=== PATIENT | female | born 1975 | race Caucasian/White ===

== ENCOUNTER 2017-03-11 20:20 | Inpatient (IN) | payer BC ==
--- NOTE | 2017-03-11 21:45 | RAD ---
RADIOGRAPH CHEST 2 VIEWS: 03/11/17 HISTORY: 41-year-old female with cough. COMPARISON: None. FINDINGS: There is no air space density, pulmonary edema, pleural effusion, pneumothorax, or cardiomegaly. Ther e is a left subclavian implantable vascular access port with distal tip overlying the lower portion o f the SVC. There is an approximately 3.5 cm gap between the proximal portion of the catheter and the distal portion of the catheter, with the gap located inferior to the left clavicular head. IMPRESSION: 1. No acute cardiopulmonary findings. 2. Broken, discontinuous left subclavian implantable vascular access port. [email or web address] [] POS: CAREY
[2017-03-11 21:55] LABS: #Eosinphils 0.2 thou/uL (0.0-0.7); #Lymphocytes 2.3 thou/uL (1.20-3.40); #Monocytes 0.5 thou/uL (0.11-0.59); #Neutrophils 9.7 thou/uL (1.40-6.50); %Basophils 0.4 % (0.0-1.0); %Eosinophils 1.3 % (0.0-10.0); %Lymphocytes 17.9 % (21.0-51.0); %Monocytes 4.2 % (0.0-10.0); Hematocrit 48.7 % (36.0-47.0); Mean Platelet Volume 7.2 fL (7.4-10.4); Red Blood Cell (RBC) Count 5.25 mill/uL (4.20-5.40); White Blood Cell (WBC) Count 12.7 thou/uL (4.8-10.8)
[2017-03-11 22:31] LABS: ALT (SGPT) 23 U/L (8-55); AST (SGOT) 14 U/L (5-34); Alkaline Phosphatase 118 U/L (40-150); Anion Gap 12 mmol/L (10-20); BUN (Urea Nitrogen) 17 mg/dL (7.0-18.7); Bilirubin, Total 0.4 mg/dL (0.2-1.2); Calc. Creatinine Clearance 0 mL/min (70-130); Calcium 9.3 mg/dL (7.8-10.44); Carbon Dioxide 26 mmol/L (22-29); Chloride 106 mmol/L (98-107); Estimated GFR-MDRD 82; Globulin 3.6 g/dL (2.4-3.5); Protein, Total 7.3 g/dL (6.0-8.3)
[2017-03-11] MEDS ORDERED: Ketorolac Tromethamine 30 MG/ML VIAL ONE (22:34)
[2017-03-11] MEDS ORDERED: Ondansetron HCl/PF 4 MG/2 ML Vial ONE (22:34)
[2017-03-12 00:11] LABS: Lactic Acid - Sepsis 0.8 mmol/L (0.5-2.2)
[2017-03-12] MEDS ORDERED: Acetaminophen 325 MG TAB PO PRN (01:35)
[2017-03-12] MEDS ORDERED: Ondansetron ODT 4 MG TAB PO PRN (01:35)
[2017-03-12] MEDS ORDERED: Guaifenesin DM 100-10/5 ML UDCUP PO PRN (01:35)
[2017-03-12] MEDS ORDERED: Benzonatate 100 MG CAP PO PRN (01:35)
[2017-03-12] MEDS ORDERED: Pseudoephedrine HCl 30 MG TAB PO PRN (01:35)
[2017-03-12] MEDS: Sodium Chloride 0.9% 1,000 ML IV SCH ×2 (02:09→10:22)
--- NOTE | 2017-03-12 02:37 | HP-2 ---
CODE STATUS: Full. PRIMARY CARE PHYSICIAN: Dr. Acuña, [place]. ATTENDING: Kaila Barrera M.D. RESIDENT: Tiera Lechuga DO HISTORIAN: The patient. SPECIALIST: Kareem Franco, information security consultant. CHIEF COMPLAINT: Sore throat, nasal congestion. HISTORY OF PRESENT ILLNESS: The patient is a 41-year-old female with past medical history of IgG4 immunodeficiency, status post several IgG infusions this week, presented with a T-max of 103.0, congestion, sinus pressure x2 weeks. She was treated with IV steroids and transitioned to p.o. steroids yesterday for flu-like symptoms diagnosed by her information security consultant. Illness began with body aches, fever, chills, sore throat, and transitioned to now a cough, sinus pressure, congestion, nausea, vomiting. She saw her PCP today. They did a chest x-ray which was negative, lab work which was negative, and PCP called information security consultant, Dr. Franco who recommended ER and inpatient care. She reports there was a transitional period of 2-3 days during this illness where she did feel better. During this time, she does have 2 new foster kids of which have had upper respiratory symptoms and viral illness. She is also reporting migraine LAMBERT symptoms of photophobia and R anterior pulsating LAMBERT. In the ER, she was given Toradol 30 mg, Zofran 4 mg IV, and Levaquin 750 mg. PAST MEDICAL HISTORY: 1. Lupus. 2. IgG4 immunodeficiency. 3. RA. 4. Fibromyalgia. 5. Gout. PAST SURGICAL HISTORY: 1. MediPort x3. 2. Hysterectomy. 3. Adhesiolysis. 4. Cholecystectomy. 5. Appendectomy. ALLERGIES: 1. DARVOCET. 2. DEMEROL. 3. PENICILLIN. 4. PERCOCET. 5. PERCODAN. 6. SULFA. 7. VICODIN. MEDICATIONS: 1. Amitriptyline 10 mg daily. 2. Prednisone 10 mg b.i.d. 3. Ativan 1 mg p.r.n. 4. Gabapentin 300 mg b.i.d. 5. Morphine 15 mg p.r.n. pain. 6. Hizentra subcutaneously weekly injections. FAMILY HISTORY: Noncontributory. SOCIAL HISTORY: The patient is a former smoker, has not smoked in 3 weeks, smoked about 1/2 pack per day for 20+ years. No alcohol or drug use. REVIEW OF SYSTEMS: GENERAL: Reports fever and chills, increased fatigue. EYES: Denies vision changes, but reports photophobia. ENT: Reports nasal congestion, headache which feels like her migraine. RESPIRATORY: Reports cough, congestion, shortness of breath. CARDIOVASCULAR: Denies chest pain or palpitations. GASTROINTESTINAL: Reports nausea, vomiting. No diarrhea, constipation, or abdominal pain. GENITOURINARY: Denies dysuria. SKIN: Denies rashes. MUSCULOSKELETAL: Reports joint pain, stable. NEUROLOGIC: Denies weakness, numbness, or syncope. PSYCHIATRIC: Denies anxiety or depression. PHYSICAL EXAMINATION: VITAL SIGNS: Blood pressure 138/69, pulse 86, respiratory rate 20, T-max 97.7, pulse ox 98% on room air. Current weight 108.86 kilograms. GENERAL: The patient is alert and oriented x4, in no acute distress. Well- developed, appropriately interactive. EYES: PERRLA, EOMI. ENT: Erythematous posterior oropharynx. Nasal mucosa is within normal limits. Sinus pressure or tenderness to palpation in sinuses. NECK: Supple with anterior cervical lymphadenopathy. CARDIOVASCULAR: Regular rate and rhythm. No murmurs or gallops. RESPIRATORY: Normal effort, mild wheezing. SKIN: Warm and dry. ABDOMEN: Soft, nontender. EXTREMITIES: No clubbing, cyanosis, or edema. MUSCULOSKELETAL: Structure within normal limits. Tone within normal limits. NEUROLOGIC: No focal deficits. GCS 15. PSYCHIATRIC: Appropriate. LABORATORY DATA: CBC: White blood cell count 12.7, hemoglobin 16.0, hematocrit 48.7, platelets 238, 76.2% neutrophils. Chemistries: Sodium 140, potassium 3.7, chloride 106, CO2 26, BUN 17, creatinine 0.7, glucose 125, GFR 82 , calcium 9.3, total protein 7.3, albumin 3.7, AST 14, ALT 23, alkaline phosphate 118, total bilirubin 0.4. Chest x-ray with no acute cardiopulmonary process. Does show broken MediPort. CT head pending. ASSESSMENT AND PLAN: 1. Viral upper respiratory infection with failed outpatient treatment in an immunocompromised patient. The patient has received IV steroids and IgG infusions without improvement. We will continue Levaquin started in ED. We will give IV fluids, p.r.n. nebulized treatments. Blood culture and urine culture were collected and are pending. Tylenol for fever control, guaifenesin for congestion and cough, Tessalon Perles for cough, and increased prednisone to 40 mg p.o. daily. 2. Acute sinusitis, likely the official CT pending. The patient does have symptoms of acute sinusitis. We will continue with IV antibiotics, possibly the cause of her fevers, CT head is pending, but we will rule out abscess versus fungal infection. 3. IgG4 deficiency, possibly consider ID consult in the morning and continue home meds and weekly injections. 4. Lupus. We will continue with home medications. This is stable. 5. Rheumatoid arthritis. We will continue with home medications. 6. Gout. Continue home medications. 8. Broken MediPort. Outpatient followup. 9. Migraine. We will try Fioricet and Tylenol. DISPOSITION AND LENGTH OF HOSPITAL STAY: 1-2 days. Symptomatic medications will be provided. History and physical exam, as well as management, was discussed with Dr. Kaila Barrera. IVANIA
[2017-03-12] MEDS: Fioricet 325/50/40 mg Tablet PO PRN ×3 (02:39→14:29)
[2017-03-12 04:34] LABS: #Eosinphils 0.2 thou/uL (0.0-0.7); #Lymphocytes 2.7 thou/uL (1.20-3.40); #Monocytes 0.6 thou/uL (0.11-0.59); %Basophils 0.5 % (0.0-1.0); %Eosinophils 1.9 % (0.0-10.0); %Lymphocytes 28.3 % (21.0-51.0); %Monocytes 6.3 % (0.0-10.0); Hematocrit 43.6 % (36.0-47.0); Mean Platelet Volume 7.3 fL (7.4-10.4); Red Blood Cell (RBC) Count 4.64 mill/uL (4.20-5.40); White Blood Cell (WBC) Count 9.5 thou/uL (4.8-10.8)
[2017-03-12] MEDS ORDERED: Lorazepam 1 MG TAB PO PRN (05:12)
[2017-03-12 05:46] VITALS: BMI 32.5
--- NOTE | 2017-03-12 07:45 | CT ---
FINAL REPORT: CT HEAD WITHOUT CONTRAST: Multiple axial tomograms were obtained through the head without IV enhancement. No acute intracranial process. There is a partially calcified mass involving the anterior falx measuring up to 1.3 cm as noted on e preliminary report. Findings most likely represent partially calcified meningioma as noted on the preliminary report. Recommend elective neurosurgical consultation and elective followup. CODE T POS: [facility]
[2017-03-12] MEDS ORDERED: predniSONE 20 MG TAB PO SCH (08:00)
[2017-03-12] MEDS ORDERED: Gabapentin 300 MG CAP PO SCH (09:00)
[2017-03-12] MEDS ORDERED: Ketorolac Tromethamine 30 MG/ML VIAL IVP SCH (09:45)
--- NOTE | 2017-03-12 10:08 | PDOC.EVN ---
Event Note - Event Note Event Note: Patient seen and examined by me. History, physical, assessment and plan reviewed with Dr. Lechuga and agree with resident's documentation. Briefly, this is a 41 year old female with history of IgG4 deficiency, lupus, migraines, fibromyalgia presented with 3 week history of sinus pressure/ congestion, cough, intermittent fevers. Seen by her trim machine adjuster and started on steroids for flu-like/viral illness. She initially felt better but then worsened and seen by PCP who sent her to ER after discussion with her trim machine adjuster. CT brain negative WBC=12.7. CXR negative. This morning feeling better except LAMBERT. States that neb treatments helped the most. A/P: 1) Sinusitis possibly secondary bacterial component given length of symptoms (3 weeks). Continue levaquin and steroids. Plan to d/c home later today with close follow-up. 2) Migraine- continue toradol.
[2017-03-12 10:54] VITALS: BP 152/91; TEMP 98
--- NOTE | 2017-03-12 16:28 | CON ---
DATE OF CONSULTATION: 03/12/2017 REASON FOR CONSULTATION: Respiratory symptoms, history of immunoglobulin deficiency. HISTORY OF PRESENT ILLNESS: A 41-year-old, first admission to this hospital, who has a history of some form of systemic lupus erythematosus as well as a recently diagnosed immunoglobulin deficiency. According to the patient, she has a deficiency of IgG1, IgG2, and IgG4. The patient was started initially on gamma globulin infusions and due to insurance issues, the approval was removed and she was recently switched to a different product which is given subcutaneously. Apparently, she was off replacement for a few weeks and now has developed recrudescence of respiratory symptoms with a sensation of sinus pressure, a cough, congestion which has failed outpatient management. She has been admitted for treatment. Some headaches. She has noticed worsening migraine headaches for the past few months. No visual symptoms, nasal obstipation, some sore throat. No neck pain, no back pain, cough with white sputum production. No abdominal pain or diarrhea. No genitourinary symptoms. She does have some tenderness in the abdominal wall from the injections for the immunoglobulin replacement. No skin disorder. No neurological symptoms. PAST MEDICAL HISTORY: Some form of systemic lupus diagnosed in the past and rheumatoid arthritis unclear the basis of diagnosis, history of some form of immunoglobulin deficiency. She states that she has IgG1, 2, and 4 deficiency, fibromyalgia, gout. PAST SURGICAL HISTORY: MediPort placement x3, hysterectomy, adhesiolysis, cholecystectomy, appendectomy. ALLERGIES: DARVOCET, DEMEROL, PENICILLIN, SULFA DRUGS, VICODIN, PERCODAN. MEDICATIONS: Had been on prednisone 10 mg twice daily, amitriptyline, Ativan, gabapentin, morphine, Hizentra. FAMILY HISTORY: Noncontributory. SOCIAL HISTORY: Former smoker. PHYSICAL EXAMINATION: VITAL SIGNS: T-max 98, blood pressure 150/90, pulse 85, respiratory rate 16, O2 sat 92-94%. GENERAL: There is no distress, nasal obstipation. SKIN: Normal. There is no lymphadenopathy. She has a port in the left subclavian region, which is moderately tender. HEENT: Ocular movements are conjugate. Oral cavity normal. Teeth in good shape. NECK: Supple, no jugular venous distention. LUNGS: Symmetric breath sounds with expiratory wheezing, right and left hemithorax. HEART: S1, S2, regular rate. No S3 or S4. ABDOMEN: Soft with tenderness at the sites of the immunoglobulin and product injection in the subcutaneous tissue. No bladder distention. EXTREMITIES: No joint inflammatory activity. Pulses 1+ dorsalis pedis. No edema. NEUROLOGIC: Plantar responses are flexor. No clonus. Cognitive function appears to be intact. LABORATORY DATA: White cell count 12.7 and 9.5, hemoglobin 16, platelets 238, 76% neutrophils and now 62%. Chemistry: Glucose 125, albumin 3.7, globulin 3.6. The patient had a brain CT scan which showed partially calcified mass in the anterior falx measuring 1.3 cm and the paranasal sinuses are actually quite clear. Chest x-ray with the discontinued broken left subclavian implantable vascular access port. The broken segment appears to be right at the subcutaneous portion, but the vascular segment is inside the subclavian vein close to the midline. ASSESSMENT: 1. History of some form of lupus and rheumatoid arthritis, unclear the basis of diagnosis. 2. History of some form of immunoglobulin deficiency and according to the patient, she has a deficiency of IgG1, 2, and 4 with previous gamma globulin infusions, now on subcutaneous immunoglobulin infusions due to insurance issues. 3. Interruption of the infusions for a period of few weeks, now recrudescence of respiratory symptoms. 3. Broken port with a segment of vascular access catheter inside the subclavian vein. DISCUSSION: The differential diagnosis includes viral respiratory infection versus bacterial bronchitis. There is no evidence of sinusitis on the CT scan that was done. Bacteremia associated with colonization of the port is another possibility since the port is tender to palpation. We will monitor blood cultures if those were submitted. It looks like 2 sets were submitted. We will submit the respiratory virus PCR panel and she will need a consultation with Surgery to inquire regarding removal of the device from her chest and from the intravascular structure. She will probably need a cardiovascular surgeon to evaluate this problem. I would also reevaluate this history of lupus with autoantibody testing and submit tests for opportunistic infections including cytomegalovirus, Cryptococcus neoformans, and histoplasma infection. Check hepatitis C and HIV serology. The issue of immunoglobulin deficiency seems to have settled by dr. Kareem Mtz with quantitative analysis as well as vaccination response and she will hopefully be switched back to gammagard infusion. MTDD
--- NOTE | 2017-03-12 20:13 | DIS-2 ---
DATE OF ADMISSION: 03/11/2017 DATE OF DISCHARGE: 03/12/2017 RESIDENTS: Que Ely M.D. ADMITTING ATTENDING: Kaila Barrera M.D. DISCHARGE ATTENDING: Kaila Barrera M.D. CONSULTS: With Infectious Disease, Osmany Rivera M.D. PROCEDURES: She underwent a brain CT on 03/11/2017 that showed no acute intracranial process. A partially calcified mass involving the anterior falx measuring up to 1.3 cm as noted on a preliminary report. Findings most likely represent partially calcified meningioma. Recommend elective neurosurgical consultation and elective followup. She also underwent a chest x-ray on 03/11/2017 that showed no acute cardiopulmonary findings, broken discontinuous left subclavian implantable vascular access port. DIAGNOSES: 1. Viral upper respiratory infection in an immunocompromised patient. 2. Acute sinusitis. 3. IgG4 deficiency. 4. Lupus. 5. Rheumatoid arthritis. 6. Gout. 7. Migraine. DISCHARGE MEDICATIONS: 1. Sumatriptan 6 mg. 2. Morphine 15 mg. 3. Lorazepam 1 mg b.i.d. 4. Amitriptyline 10 mg b.i.d. 5. Prednisone 10 mg b.i.d. 6. Hizentra 10 grams subcutaneous every 7 days. 7. Gabapentin 300 mg b.i.d. 8. Toradol 30 mg. 9. Tessalon 100 mg. 10. Levaquin 750 mg. 11. Albuterol sulfate 2.5 mg nebulizers. DISCONTINUED MEDICATIONS: None. HISTORY OF PRESENT ILLNESS AND HOSPITAL COURSE: This is a 41-year-old female with past medical history of IgG4 deficiency, status post several IgG infusions this week, presented with T-max 103 degrees, congestive sinus pressure x2 weeks. She was treated with IV steroids and transitioned to p.o. steroids yesterday for flu-like symptoms, diagnosed by her boarder machine. Illness began with body aches, fever, chills, sore throat, cough, sinus pressure, congestion, nausea, and vomiting. She saw her PCP today, they did a chest x-ray which was negative; lab work, which was negative and her PCP called boarder machine, Dr. Mtz, who recommended ER and inpatient care. She reports there was a transitional period of 2-3 days during this illness where she did feel better. During this time, she does have two new which she had an upper respiratory symptoms and viral illness. She is also reporting migraine headache , symptoms of photophobia and right anterior pulsating headache. In the ER, she was given Toradol 30 mg, Zofran 4 mg, IV and Levaquin 750 mg. During the hospitalization, her respiratory status improved with the nebulized albuterol, ipratropium combination DuoNebs. She was no longer labored breathing , she still did experience a headache, but she said that is normal for her. She does suffer from migraines that she is treated as an outpatient for. Her CT scan did not show any acute signs of bacterial sinusitis, so it was determined that this is likely a viral upper respiratory infection with some sinus pressure that will need outpatient followup. She had some notable lab values of a white blood cell count of 12.7 that down trended to 9.5 on day of discharge and a lactic acid of 0.8. During this hospitalization, she was afebrile, the entire time with her temperature ranging from 97.6 to 97.9, then she was not tachycardic and was not tachypneic and had good oxygen saturation during her hospitalization. She otherwise tolerated the hospitalization well and had no further complications. We do recommend that she have a close outpatient follow up with her boarder machine and her primary care physician to discuss her disease management for her chronic disease management in the acute phase during viral illnesses. She otherwise had no complications and was discharged on appropriate condition. DISPOSITION: Stable. DISCHARGE INSTRUCTIONS: 1. Location: She will be discharged to home to her own care. 2. Diet: Will be as tolerated with no restrictions. 3. Activity: Will be as tolerated with no restrictions. 4. Followup: Will be with her primary care provider, Dr. Acuña in 3 days as well as her boarder machine, Dr. Mtz, in the next weeks to discuss long-term therapy for her chronic illness, we wish her the best of luck and hope she has no further complications from this condition. IVANIA
[2017-03-12] MEDS ORDERED: Amitriptyline HCl 10 MG TAB PO SCH (21:00)
[2017-03-17] MEDS ORDERED: [UNRECOGNIZED DRUG - OTHER] SQ SCH (09:00)
[2017-03-17] MEDS ORDERED: IMMUNE GLOBULIN SQ SCH (09:00)
== END 2017-03-12 15:41 | disposition home or self-care (01) | DRG 153 ==
LOC: ERS 20:20 → T4-B 03-12 00:54
PROVIDERS: ADMIT Family Medicine; ATTEND Family Medicine
DX: J01.90 Acute sinusitis, unspecified (principal); D80.3 Selective deficiency of immunoglobulin G [IgG] subclasses; T82.514A Breakdown (mechanical) of infusion catheter, initial encounter; R78.81 Bacteremia; D89.9 Disorder involving the immune mechanism, unspecified; M32.9 Systemic lupus erythematosus, unspecified; M10.9 Gout, unspecified; M06.9 Rheumatoid arthritis, unspecified; D32.0 Benign neoplasm of cerebral meninges; M79.7 Fibromyalgia; G43.909 Migraine, unspecified, not intractable, without status migrainosus; Z88.0 Allergy status to penicillin; Z88.6 Allergy status to analgesic agent; Z88.5 Allergy status to narcotic agent; Z88.2 Allergy status to sulfonamides; Z87.891 Personal history of nicotine dependence; Y84.8 Other medical procedures as the cause of abnormal reaction of the patient, or of later complication, without mention of misadventure at the time of the procedure; Y92.239 Unspecified place in hospital as the place of occurrence of the external cause
CPT/HCPCS: 36415; 70450; 71020; 80053; 83520; 83605; 85025; 86160; 86225; 86235; 86376; 86431; 86803; 87040; 87385; 87389; 87497; 87633; 87899; 93005; 94640; 96361; 96365; 96375; A4216; J1885; J1956; J2405; J7506; J7620

== ENCOUNTER 2017-05-17 20:35 | Emergency (ER) | payer BC ==
--- NOTE | 2017-05-17 21:57 | CT ---
CT HEAD WITHOUT CONTRAST 05/17/17 COMPARISON: 03/12/17 HISTORY: Migraine headache, history of brain tumor. TECHNIQUE: Serial axial CT imaging obtained at 5 mm intervals from vertex through skull base without contrast. FINDINGS: Imaged paranasal sinuses and mastoid air cells are well aerated. No displaced calvarial fracture, int racranial hemorrhage, midline shift, or ventricular enlargement. There is a partially calcified midline frontal mass, likely extra-axial in mature, measuring approxim ately 1.6 cm in transverse dimension, stable. A meningioma is favored. Followup nonemergent brain MRI with and without contrast is advised for full characterization. IMPRESSION: 1. No intracranial hemorrhage. 2. Findings suggesting a partially calcified extra-axial mass in midline frontal location. Menin gioma is favored. Followup MR advised. POS: CAREY
[2017-05-17] MEDS ORDERED: Ketorolac Tromethamine 30 MG/ML VIAL ONE (22:34)
[2017-05-17] MEDS ORDERED: diphenhydrAMINE 50 MG/ML VIAL ONE (22:34)
[2017-05-17] MEDS ORDERED: Metoclopramide HCl 10 MG/2 ML VIAL ONE (22:34)
[2017-05-17] MEDS ORDERED: methylPREDNISolone Sod Succ/PF 125 MG/2 ML VIAL ONE (23:58)
[2017-05-18] MEDS ORDERED: Magnesium Sulfate 2 GM/100 ML BAG ONE
== END 2017-05-18 01:56 | disposition home or self-care (01) ==
LOC: ERS 20:35
DX: G43.909 Migraine, unspecified, not intractable, without status migrainosus (principal); Z87.891 Personal history of nicotine dependence; Z79.899 Other long term (current) drug therapy; Z71.6 Tobacco abuse counseling
CPT/HCPCS: 70450; 96365; 96366; 96367; 96375; 99406; J1200; J1642; J1885; J2765; J2930; J3475

== ENCOUNTER 2017-06-05 23:34 | Observation (INO) | payer BC ==
[2017-06-06 00:07] LABS: #Basophils 0.1 thou/uL (0.0-0.2); #Eosinphils 0.4 thou/uL (0.0-0.7); #Lymphocytes 2.5 thou/uL (1.20-3.40); #Monocytes 0.4 thou/uL (0.11-0.59); #Neutrophils 3.4 thou/uL (1.40-6.50); %Basophils 1.3 % (0.0-1.0); %Eosinophils 5.8 % (0.0-10.0); %Lymphocytes 36.3 % (21.0-51.0); %Monocytes 6.3 % (0.0-10.0); %Neutrophils 50.3 % (42.0-75.0); Mean Corpuscular Hemoglobin 30.3 pg (27.0-31.0); Mean Corpuscular Volume 89.2 fl (81.0-99.0); Mean Platelet Volume 7.2 fL (7.4-10.4); Platelet Count 238 thou/uL (130-400); RBC Distribution Width 12.7 % (11.5-14.5); Red Blood Cell (RBC) Count 5.27 mill/uL (4.20-5.40); White Blood Cell (WBC) Count 6.8 thou/uL (4.8-10.8)
[2017-06-06 00:29] LABS: ALT (SGPT) 24 U/L (8-55); AST (SGOT) 20 U/L (5-34); Albumin 3.9 g/dL (3.5-5.0); Alkaline Phosphatase 123 U/L (40-150); Anion Gap 10 mmol/L (10-20); BUN (Urea Nitrogen) 16 mg/dL (7.0-18.7); Bilirubin, Total 0.3 mg/dL (0.2-1.2); Calc. Creatinine Clearance 0 mL/min (70-130); Calcium 9.9 mg/dL (7.8-10.44); Carbon Dioxide 31 mmol/L (22-29); Chloride 104 mmol/L (98-107); Estimated GFR-MDRD 75; Globulin 3.4 g/dL (2.4-3.5); Glucose 81 mg/dL (70-105); Potassium 3.4 mmol/L (3.5-5.1); Protein, Total 7.3 g/dL (6.0-8.3); Sodium 142 mmol/L (136-145)
[2017-06-06 00:33] LABS: Troponin I Less than 0.010 ng/mL (< 0.028)
[2017-06-06 01:09] LABS: INR-International Normal Ratio 0.9; PTT 28.8 SEC (22.9-36.1); Prothrombin Time 12.7 SEC (12.0-14.7)
[2017-06-06 01:10] LABS: BHCG - Serum Negative (NEGATIVE); Pregs Control Background? CLEAR/WHITE (CLR/WHITE); Pregs Control Bar Appear? YES (CONTROL BAR)
[2017-06-06] MEDS ORDERED: methylPREDNISolone Sod Succ/PF 125 MG/2 ML VIAL ONE (01:24)
[2017-06-06] MEDS ORDERED: Metoclopramide HCl 10 MG/2 ML VIAL ONE (01:24)
[2017-06-06] MEDS ORDERED: Water For Inject, Bacteriostat 30 ML ONE (01:24)
[2017-06-06] MEDS ORDERED: Labetalol HCl 100 MG/20 ML VIAL SLOW IVP PRN (02:58)
[2017-06-06] MEDS ORDERED: hydrALAZINE 20 MG/ML VIAL SLOW IVP PRN (02:58)
[2017-06-06] MEDS ORDERED: Milk Of Magnesia 30 ML UDCUP PO PRN (03:03)
[2017-06-06] MEDS ORDERED: Acetaminophen 325 MG TAB PO PRN (03:03)
[2017-06-06] MEDS ORDERED: Ondansetron HCl/PF 4 MG/2 ML Vial IVP PRN (03:03)
[2017-06-06 03:36] LABS: Bilirubin Negative (Negative); Blood, Urine Negative (Negative); Clarity CLEAR (Clear); Glucose, Urine (Dipstick) Negative (Negative); Leukocyte Negative (Negative); Nitrite Negative (Negative); Protein, Urine (Dipstick) Negative (Neg-Trace); Urobilinogen 0.2 mg/dL (0.2-1.0); pH, Urine 5.5 (5.0-9.0)
[2017-06-06 03:38] LABS: Specific Gravity, Urine 1.064 (1.002-1.036)
[2017-06-06 03:48] LABS: #Eosinphils 0.2 thou/uL (0.0-0.7); #Lymphocytes 1.5 thou/uL (1.20-3.40); #Monocytes 0.1 thou/uL (0.11-0.59); #Neutrophils 3.3 thou/uL (1.40-6.50); %Basophils 0.7 % (0.0-1.0); %Eosinophils 4.5 % (0.0-10.0); %Lymphocytes 29.4 % (21.0-51.0); %Monocytes 2.4 % (0.0-10.0); Hemoglobin 15.7 g/dL (12.0-16.0); Mean Corpuscular HGB CONC 34.5 g/dL (32.0-36.0); Mean Corpuscular Hemoglobin 30.7 pg (27.0-31.0); Mean Platelet Volume 7.2 fL (7.4-10.4); Platelet Count 218 thou/uL (130-400); RBC Distribution Width 12.5 % (11.5-14.5); Red Blood Cell (RBC) Count 5.11 mill/uL (4.20-5.40); White Blood Cell (WBC) Count 5.2 thou/uL (4.8-10.8)
[2017-06-06 04:09] LABS: ALT (SGPT) 25 U/L (8-55); AST (SGOT) 20 U/L (5-34); Albumin 3.8 g/dL (3.5-5.0); Alkaline Phosphatase 118 U/L (40-150); Anion Gap 10 mmol/L (10-20); BUN (Urea Nitrogen) 15 mg/dL (7.0-18.7); Bilirubin, Total 0.4 mg/dL (0.2-1.2); Calc. Creatinine Clearance 0 mL/min (70-130); Calcium 9.3 mg/dL (7.8-10.44); Carbon Dioxide 26 mmol/L (22-29); Cardiac Risk 7.7 (Less than 4.5); Chloride 107 mmol/L (98-107); Cholesterol 240 mg/dl (< 200 Desired); Estimated GFR-MDRD 85; Globulin 3.3 g/dL (2.4-3.5); Glucose 116 mg/dL (70-105); HDL Cholesterol 31 mg/dL (>60 Neg Risk); LDL Cholesterol, Calculated 153 mg/dL; Potassium 3.8 mmol/L (3.5-5.1); Protein, Total 7.1 g/dL (6.0-8.3); Sodium 139 mmol/L (136-145); Triglycerides 278 mg/dL (Less than 150)
--- NOTE | 2017-06-06 04:50 | HP ---
PRIMARY CARE PHYSICIAN: Dr. Tyrell Acuña. PRESENTING COMPLAINT: Right-sided weakness. HISTORY OF PRESENT ILLNESS: A 41-year-old female with a past medical history of IgG4 deficiency, lupus, rheumatoid arthritis, fibromyalgia and gout who presents to the emergency room with complaints of right-sided weakness. Patient reports around 5-6 p.m. today, she felt some numbness in her arms and legs with tingling and weakness, making it difficult for her to ambulate. She also had numbness on the right side of her face, slurred speech, and word finding difficulties. This was preceded by headaches, which she says she has had chronically, but got worse around 5-6 p.m. today. It was associated with some nausea, but no vomiting. She took some Toradol, ibuprofen, and Relpax at home, which usually works for her headaches, but had no relief today. She has a history of meningioma according to the patient and she is supposed to follow up with a physician at [facility] on 06/14/2017. Her headache is described as frontal, throbbing, does not radiate, and not associated with any vision difficulties. The patient denies fevers, chills, chest pain, shortness of breath, abdominal or urinary symptoms. There is no history of loss of consciousness or dizziness. She is not on aspirin or any blood thinner and has not had similar symptoms before. PAST MEDICAL HISTORY: As stated in the HPI. PAST SURGICAL HISTORY: MediPort x3, hysterectomy, appendectomy, cholecystectomy. SOCIAL HISTORY: Smokes half a pack of cigarettes per day, but denies using alcohol or illicit drugs. ALLERGIES: DARVOCET, DEMEROL, PENICILLIN, PERCOCET, PERCODAN, SULFA DRUGS, VICODIN. HOME MEDICATIONS: Amitriptyline 10 mg daily, prednisone 10 mg b.i.d., Ativan 1 mg p.r.n., gabapentin 300 mg b.i.d., morphine 50 mg p.r.n. for pain, Hizentra subcutaneous weekly injections, albuterol sulfate 2.5 mg nebulizer q.4 hours p.r.n., levofloxacin 750 mg daily, ketorolac 30 mg IM every 6 hours p.r.n., immunoglobulin IgG 10 grams in 15 mL every 7 days subcutaneously, lorazepam 1 mg b.i.d., prednisone 10 mg b.i.d., sumatriptan succinate 6 mg subcutaneous every one hour p.r.n. for headaches. REVIEW OF SYSTEMS: Twelve-point review of systems was performed and negative except stated in the HPI. HOME MEDICATIONS: Reviewed and charted. PHYSICAL EXAMINATION: VITAL SIGNS: Stable and within normal limits. GENERAL: Not in acute distress, sitting comfortably in bed. HEENT: Normocephalic, atraumatic. Not pale, anicteric. PERRLA. EOMI. Moist mucous membranes. CARDIOVASCULAR: S1 and S2 only. Regular rate and rhythm. No murmurs, rubs, or gallop. RESPIRATORY: Vascular breath sounds bilaterally. No wheezes, rales, or rhonchi. ABDOMEN: Soft, nontender, not distended. Bowel sounds present. No hepatosplenomegaly. MUSCULOSKELETAL: Strength 3-1/2 to 4/5 in the right upper extremity, 3/5 in right lower extremities. Full strength in left extremities. NEUROLOGIC: Alert and oriented to time, place and person. No focal deficits. Sensation intact. SKIN: Warm, dry, well-perfused. PSYCHIATRIC: Normal mood and affect. LABORATORY DATA: CBC within normal limits. INR 0.9. Chemistry essentially normal apart from mild hypokalemia of 3.4. Beta hCG negative. Initial troponin less than 0.010. IMAGING: CT head without contrast showed no focal deficits. A CT [place] angio with contrast, formal report pending. ASSESSMENT AND PLAN: 1. Right hemiparesis. Concern for possible new CVA in this patient with autoimmune disorders and prone to hypercoagulability. She has been admitted to the stroke unit. We will follow up on the CT angio, ordered an MRI of brain, MAL, PT/OT, and speech language therapy. We will also obtain a neurology consult. Stroke protocol in place. 2. IgG4 deficiency. We will resume home medications. 3. Systemic lupus erythematosus as above. 4. Headaches. We will start home medications and monitor. 5. We will also start the patient on aspirin and statin for secondary prevention. CODE STATUS: FULL CODE. In addition for rheumatoid arthritis and gout, we will continue her home medications and for her headache, we will continue sumatriptan and Tylenol. IVANIA
[2017-06-06 05:06] VITALS: BMI 34.9
--- NOTE | 2017-06-06 07:50 | CT ---
PRELIMINARY REPORT/[facility]/EMERGENCY AFTER HOURS PROCEDURE: Addendum created by Zaid Campbell MD on 06/06/2017 1:04 AM Central Time ([place] & [place]) THIS REPORT CONTAINS FINDINGS THAT MAY BE CRITICAL TO PATIENT CARE. The findings were verbally commun icated via telephone conference with Sung Downey at 1:04 AM [facility] [employer] on 06/06/2017. The findings were acknowledged and understood. Initial Report created on 06/06/2017 12:55 AM Central Time ([place] & [place]) EXAM: CT Head Without Intravenous Contrast CLINICAL HISTORY: 41 years old, female; Pain and signs and symptoms; Weakness, extremity; Headache; Patient HX: 41 yo f presents to ed C/O r side numbness. Pt states she has h/o a frontal lobe meningioma dx on 03/13/17. States that tonight at [id number] she started having a bad headache. At 20: 30 tonight, pt started hav ing r sided face numbness and r arm and r leg tingling. TECHNIQUE: Axial computed tomography images of the head/brain without intravenous contrast. COMPARISON: Head CT report dated 03/12/2017 FINDINGS: Brain: Frontal parafalcine partially calcified extra-axial mass measuring 12 x 10 mm presumably repre senting a meningioma, grossly stable by report No hemorrhage. No significant white matter disease. No edema. Ventricles: Unremarkable. No ventriculomegaly. Bones/joints: Unremarkable. No acute fracture. Soft tissues: Unremarkable. Sinuses: Unremarkable as visualized. No acute sinusitis. Mastoid air cells: Unremarkable as visualized. No mastoid effusion. IMPRESSION: Grossly stable meningioma by report No intracranial hemorrhage.Please see discussion above. Thank you for allowing us to participate in the care of your patient. Dictated and Authenticated by: Zaid Campbell MD 06/06/2017 12:55 AM Central Time ([place] & [place]) FINAL REPORT CT BRAIN WITHOUT CONTRAST: HISTORY: Stroke protocol. Numbness. COMPARISON: CT brain 05/17/17. FINDINGS: Findings and impression are concordant with the preliminary report. POS: [facility]
--- NOTE | 2017-06-06 07:57 | CT ---
PRELIMINARY REPORT/[facility]/EMERGENCY AFTER HOURS PROCEDURE: Addendum created by Ben Bond MD on 06/06/2017 1:42 AM Central Time ([place] & [place]) Findings discussed with Sung Downey MD at time of interpretation. Initial Report created on 06/06/2017 1:39 AM Central Time ([place] & [place]) EXAM: CT Angiography Head With Intravenous Contrast CLINICAL HISTORY: 41 years old, female; Pain and signs and symptoms; Weakness; Headache; Patient HX: stroke activatio n er 6; 41 yo f presents to ed C/O r side numbness. Pt states she has h/o a frontal lobe meningioma dx on 03/13/17. States that tonight at [id number] she started having a bad headache. At 20: 30 tonigh t, pt started having r sided face numbness and r arm and r leg tingling. Also reports r leg weakness TECHNIQUE: Axial computed tomographic angiography images of the head with intravenous contrast using CT angiogra phy protocol. Coronal and sagittal reformatted images were created and reviewed. COMPARISON: No relevant prior studies available. FINDINGS: Right internal carotid artery: No acute findings. Intracranial segment is patent with no significant stenosis. No aneurysm. Right anterior cerebral artery: Unremarkable. No occlusion or significant stenosis. No aneurysm. Right middle cerebral artery: Unremarkable. No occlusion or significant stenosis. No aneurysm. Right posterior cerebral artery: Unremarkable. No occlusion or significant stenosis. No aneurysm. Right vertebral artery: Unremarkable as visualized. Left internal carotid artery: No acute findings. Intracranial segment is patent with no significant s tenosis. No aneurysm. Left anterior cerebral artery: Unremarkable. No occlusion or significant stenosis. No aneurysm. Left middle cerebral artery: Unremarkable. No occlusion or significant stenosis. No aneurysm. Left posterior cerebral artery: Unremarkable. No occlusion or significant stenosis. No aneurysm. Left vertebral artery: Unremarkable as visualized. Basilar artery: Unremarkable. No occlusion or significant stenosis. No aneurysm. Brain: 1.8 cm partially calcified anterior falx meningioma. No hemorrhage. IMPRESSION: No acute vascular findings. EXAM: CT Angiography Neck With Intravenous Contrast EXAM DATE/TIME: Exam ordered 06/06/2017 1:09 AM CLINICAL HISTORY: 41 years old, female; Pain and signs and symptoms; Weakness; Headache; Patient HX: stroke activatio n er 6; 41 yo f presents to ed C/O r side numbness. Pt states she has h/o a frontal lobe meningioma dx on 03/13/17. States that tonight at [id number] she started having a bad headache. At 20: 30 tonigh t, pt started having r sided face numbness and r arm and r leg tingling. Also reports r leg weakness TECHNIQUE: Axial computed tomographic angiography images of the neck with intravenous contrast using CT angiogra phy protocol. COMPARISON: CT Brain WO Con 2017-06-06 00:46 FINDINGS: VASCULATURE: Right common carotid artery: Unremarkable. No significant stenosis. No dissection or occlusion. Right internal carotid artery: Unremarkable. Extracranial segment is patent with no significant steno sis. No dissection or occlusion. Right external carotid artery: Unremarkable. No occlusion. Right vertebral artery: Unremarkable. No significant stenosis. No dissection or occlusion. Left common carotid artery: Unremarkable. No significant stenosis. No dissection or occlusion. Left internal carotid artery: Unremarkable. Extracranial segment is patent with no significant stenos is. No dissection or occlusion. Left external carotid artery: Unremarkable. No occlusion. Left vertebral artery: Unremarkable. No significant stenosis. No dissection or occlusion. NECK: Bones/joints: No acute fracture. No dislocation. Soft tissues: Unremarkable as visualized. No mass. Tubes, lines and devices: Right internal jugular venous central catheter present. CAROTID STENOSIS REFERENCE USING NASCET CRITERIA: % ICA stenosis = (1 - narrowest ICA diameter/diameter of distal cervical ICA) x 100. Mild - <50% stenosis. Moderate - 50-69% stenosis. Severe - 70-94% stenosis. Near occlusion - 95-99% stenosis. Occluded - 100% stenosis. IMPRESSION: No acute vascular findings. Thank you for allowing us to participate in the care of your patient. Dictated and Authenticated by: Ben Bond MD 06/06/2017 1:39 AM Central Time ([place] & [place]) FINAL REPORT CT ANGIO HEAD WITH CONTRAST CT ANGIO NECK WITH CONTRAST: COMPARISON: None. TECHNIQUE: CT angiogram of the head and neck performed after the intravenous administration of contrast. Three- D rendering is provided. FINDINGS: Findings and impression are concordant with the preliminary report. POS: [facility]
[2017-06-06] MEDS: Heparin 5,000 UNITS/ML VIAL SC SCH ×2 (08:28→20:59)
[2017-06-06] MEDS: Aspirin 81 mg Enteric Coated Tablet PO SCH (08:29)
--- NOTE | 2017-06-06 09:44 | MRI ---
MRI BRAIN WITHOUT CONTRAST: Date: 06/06/17 HISTORY: Stroke. Right-sided numbness and tingling. Right arm and right leg tingling. COMPARISON: CT dated 06/06/17. FINDINGS: On the diffusion-weighted imaging sequence, there are no abnormal areas of diffusion restricted. This is confirmed on the ADC map. On the susceptibility-weighted imaging sequence, there is some susceptibility within an extra-axial p arafalcine midline mass. This is most likely a meningioma. No midline shift. No mass effect. Basilar cisterns are patent. Punctate low grade white matter hyperintensities are present. IMPRESSION: 1. No acute hemorrhage or infarction. 2. Extra-axial parafalcine midline mass, likely meningioma. POS: [facility]
[2017-06-06] MEDS: Morphine ER 15 MG TAB PO PRN (12:10)
--- NOTE | 2017-06-06 13:24 | PDOC.PN ---
- Subjective Encounter Start Date: 06/06/17 Encounter Start Time: 10:30 Subjective: pt up in bed continues to have right side weakness -: pt's states that she does not remember her wedding anniversary - Objective Vital Signs & Weight: Vital Signs (12 hours) Temp Pulse Pulse Pulse Resp BP BP 06/06/17 11:20 97.6 F 81 16 06/06/17 10:11 89 95 140/79 178/82 H 06/06/17 08:28 97.8 F 65 16 06/06/17 07:35 71 66 111/65 127/78 06/06/17 07:20 97.8 F 65 16 06/06/17 05:00 97.5 F L 76 20 06/06/17 04:35 97.5 F L 76 20 BP Pulse Ox 06/06/17 11:20 136/80 93 L 06/06/17 10:11 06/06/17 08:28 06/06/17 07:35 06/06/17 07:20 114/65 92 L 06/06/17 05:00 06/06/17 04:35 124/93 H 92 L Weight Weight 258 lb 1 oz Result Diagrams: 06/06/17 03:37 06/06/17 03:37 Phys Exam - Physical Examination HEENT: PERRLA, moist MMs Neck: no nodes, no JVD Respiratory: no wheezing, no rales Cardiovascular: RRR, no significant murmur Gastrointestinal: soft pt's right side of face, right side below knee and below elbow decrease sen pt has 4/5 right side upper and lower ext weakness Dx/Plan - Plan * . 1) Acute right sided weakness 2) meningioma 3) Hx of lupus/RA plan: pt's ct brain/cta head/neck and MRI no indication of stroke. pt does have this meningioma which was dx in . She did have some right face loss of sensation a few months back which resloved. she is suppose to go see neurosurgery in [place] for removal of the meningioma. Pt was on steroids for her lupus but has been off of them for some weeks now and gets weekly IV infusion with hyzentra. spoke with neurology who did not think her meningioma is causing her current symptoms. which i agree. will consult neurosurgery for evaluation. ? psychosomatic. Review of Systems - Review of Systems Eyes: negative: Pain, Vision Change, Conjunctivae Inflammation, Eyelid Inflammation, Redness, Other ENT: negative: Ear Pain, Ear Discharge, Nose Pain, Nose Discharge, Nose Congestion, Mouth Pain, Mouth Swelling, Throat Pain, Throat Swelling, Other Respiratory: negative: Cough, Dry, Shortness of Breath, Hemoptysis, SOB with Excertion, Pleuritic Pain, Sputum, Wheezing Neurological: Weakness, Other (pt has right upper and lower ext weakness) - Medications/Allergies Allergies/Adverse Reactions: Allergies Allergy/AdvReac Type Severity Reaction Status Date / Time hydrocodone [From Vicodin] Allergy Verified 03/12/17 08:38 meperidine [From Demerol] Allergy Verified 03/12/17 08:38 oxycodone [From Percocet] Allergy Verified 03/12/17 08:38 Penicillins Allergy Verified 03/12/17 08:38 propoxyphene Allergy Verified 03/12/17 08:38 Sulfa (Sulfonamide Allergy Verified 03/12/17 08:38 Antibiotics) Medications: Current Medications Acetaminophen (Tylenol) 650 mg PO Q4H PRN PRN Reason: Headache/Fever or Pain Last Admin: 06/06/17 06:51 Dose: 650 mg Amitriptyline HCl (Elavil) 10 mg PO BID [facility] Aspirin (Ecotrin) 81 mg PO DAILY [facility] Last Admin: 06/06/17 08:29 Dose: 81 mg Atorvastatin Calcium (Lipitor) 40 mg PO HS [facility] Gabapentin (Neurontin) 300 mg PO BID [facility] Heparin Sodium (Porcine) (Heparin) 5,000 units SC Q12HR [facility] Last Admin: 06/06/17 08:28 Dose: 5,000 units Hydralazine HCl (Apresoline) 10 mg SLOW IVP Q4H PRN PRN Reason: BP > 220/110 Labetalol HCl (Normodyne) 20 mg SLOW IVP Q1H PRN PRN Reason: BP > 220/110 Lactulose (Lactulose) 20 gm PO DAILYPRN PRN PRN Reason: Constipation Lorazepam (Ativan) 1 mg PO BID [facility] Magnesium Hydroxide (Milk Of Magnesium) 30 ml PO DAILYPRN PRN PRN Reason: Constipation Morphine Sulfate (Ms Contin) 15 mg PO Q6HR PRN PRN Reason: Headache Last Admin: 06/06/17 12:10 Dose: 15 mg Ondansetron HCl (Zofran) 4 mg IVP Q6H PRN PRN Reason: Nausea/Vomiting Sodium Chloride (Flush - Normal Saline) 10 ml IVF PRN PRN PRN Reason: Saline Flush
[2017-06-06] MEDS: Ketorolac Tromethamine 30 MG/ML VIAL IVP PRN ×2 (15:20→20:58)
[2017-06-06] MEDS ORDERED: ISOVUE-370 76%-LOCM 1 ML ONE (15:38)
[2017-06-06] MEDS: Gabapentin 300 MG CAP PO SCH (20:57)
[2017-06-06] MEDS: Atorvastatin Calcium 40 MG TAB PO SCH (20:57)
[2017-06-06] MEDS: Amitriptyline HCl 10 MG TAB PO SCH (20:58)
[2017-06-06] MEDS: Lorazepam 1 MG TAB PO SCH (20:58)
--- NOTE | 2017-06-06 23:08 | CON ---
DATE OF CONSULTATION: 06/06/2017 REFERRING PROVIDER: Anthony Brown M.D. REASON FOR CONSULTATION: Right-sided weakness. HISTORY OF PRESENT ILLNESS: Ms. Montiel is a pleasant 41-year-old female who has been consulted for evaluation of right-sided weakness. The patient reports that she has been having headaches on a daily basis since December of last year. She notes that on yesterday she started having numbness on the right side of her face, arm, and leg. She also noticed difficulty with getting her words out and difficulty with thinking. She also noticed weakness on her right side, which prompted her to present to the [facility]. She states that she has been having headaches since December of last year , for these headaches she had presented to the [facility] in December and January. She notes that with headache she was having difficulty with coordination and balance. She was also having difficulty with numbness and tingling as well as weakness. She had presented to the [facility], at that time, she was diagnosed with flu as well as chronic sinusitis. She was then referred to ENT doctor who cleared her for chronic sinusitis. She ended up having a CT scan of the head done which showed a small meningioma for which she had seen neurologist in [facility]. She had one episode where she was sitting in a bathtub and passed out and became weak all over and difficulty with walking and balance. Her had to help her to get from bathroom to the bedroom. They had seen a neurologist after this episode. They had performed EEG, which was apparently according to them was normal. He had also obtained EMG nerve conduction study which had shown some nerve damage in the feet, but otherwise normal. It was felt by neurologist at that time that her symptoms may have been contributed by her meningioma and thus she was referred to a neurosurgeon at [facility]. Initially, the neurosurgeon had recommended that conservative approach with observation; however, as her symptoms were becoming more frequent. He had advised her to undergo surgery. She was referred to [facility] for which she is awaiting appointment for . She states that since yesterday, her headaches have been continuous. She notes that she has difficulty with forming words, difficulty with thinking process, difficulty with coordinating with her left side. She is also feeling numb on her right side. She is also feeling weak on her right side. Her headaches have not improved since she has been here to the hospital. PAST MEDICAL HISTORY: Significant for lupus, rheumatoid arthritis, fibromyalgia , gout, IgG4 deficiency, and meningioma. PAST SURGICAL HISTORY: Significant for hysterectomy, appendectomy, cholecystectomy, and MediPort placement. SOCIAL HISTORY: She smokes half pack of cigarettes per day, but denies alcohol or illicit drug use. CURRENT MEDICATIONS: Please review MAR. ALLERGIES: Include DARVOCET, DEMEROL, PENICILLIN, PERCOCET, PERCODAN, SULFA DRUGS, and VICODIN. FAMILY HISTORY: Noncontributory. SOCIAL HISTORY: She denies alcohol use or illicit drug use. She smokes 1/2 pack of cigarettes per day. FAMILY HISTORY: Noncontributory. REVIEW OF SYSTEMS: As mentioned above in the HPI, otherwise negative. PHYSICAL EXAMINATION: VITAL SIGNS: Blood pressure of 137/62, pulse of 100, temperature of 98.1, respirations of 17, O2 sats of 92% on room air. GENERAL: Well-developed, well-nourished female in no apparent distress. RESPIRATORY: Clear to auscultation bilaterally. CARDIOVASCULAR: Regular rate and rhythm. NEUROLOGIC: Mental status: The patient is awake, alert, oriented x3. Speech and language: Fluent speech. Cranial nerves: Pupils are 3 mm and reactive. Visual fitzgerald are full to threat. External muscles are intact. No nystagmus is noted. Face is symmetric. Tongue and uvula are midline. Motor exam showed normal tone and bulk. She has a 5/5 strength in the left upper and left lower extremity. She has 3 to 4/5 strength in the right upper and right lower extremity with poor effort and giveaway weakness. When I asked her to raise her right arm up, she was able to hold above the bed approximately 30 to 40 degrees without having a drift, when I asked her to raise her right leg up, she was able to hold the right leg above the bed at least 30 degrees without having any drift for at least 5 seconds. Sensory: Diminished sensation on the right side to vibratory per patient. Deep tendon reflexes, 2+ reflexes in both upper and lower extremities. Babinski: Plantar responses flexion bilaterally. Coordination intact to [id number] and finger tapping bilaterally. LABORATORY DATA: Reviewed, which included CBC, coag panel, CMP, urinalysis, which are essentially normal. Lipid profile was reviewed, which showed total cholesterol of 240, LDL of 153, HDL of 31, triglycerides of 278, otherwise unremarkable. IMAGING STUDIES: MRI brain without contrast was reviewed, which showed small parafalcine frontal lobe meningioma, otherwise unremarkable. CT angiogram of the head and neck were reviewed, which showed no hemodynamically significant stenosis. IMPRESSION: 1. Parafalcine frontal lobe meningioma. 2. Intractable headaches. 3. Right-sided weakness. Ms. Montiel is a pleasant 41-year-old female who presented with the worsening headaches and right-sided weakness. I have reviewed her MRI brain without contrast, which does show small midline parafalcine frontal lobe meningioma. It is difficult for me to believe that all her symptoms are contributed by this meningioma. Her exam has shown that she gives very poor effort and has a giveaway weakness. Based on the location of the lesion, this would not cause difficulty with balance. This would not cause resulting in dizziness or changes in speech or numbness or tingling or weakness on upper extremity or face. In any case, I will recommend following up the recommendations of Neurosurgery. There is no further neurological workup needed from my standpoint. Thank you for consultation. IVANIA
--- NOTE | 2017-06-06 23:31 | CON ---
DATE OF CONSULTATION: 06/06/2017 HISTORY OF PRESENT ILLNESS: Ms. Montiel is a 41-year-old female who I saw in her room this afternoon . She presented today with symptoms of increasing headaches, visual changes and dizziness since 12/27. Her main concern today was weakness that was rated 2/5 on physical examination in the right upp er and lower extremity, tingling and paresthesias as well, has struggle finding words. The tingling and paresthesias were on her right face, upper extremity on the right leg. She has complete workup f or these symptoms at [facility] and scheduled to have meningioma removed. It was found on CT scan i n the frontal parafalcine region on 06/14/2017. She has an emerging technologies director, pit and auxiliaries supervisor and neurolo gist that she has seen recently and found no deficits in the medical field. The patient does have a history of lupus and several IgE deficiencies. The patient urgently wanting a transferred to [facility] to expedite her surgery. Neurosurgery was consulted because of the findings of the meningioma i n the frontal parafalcine region. PAST MEDICAL HISTORY: IgG4 deficiency, lupus, rheumatoid arthritis, fibromyalgia. PAST SURGICAL HISTORY: MediPort x3, hysterectomy, appendectomy, and cholecystectomy. SOCIAL HISTORY: Smokes half pack of cigarettes a day, denies any alcohol or illicit drug use. ALLERGIES: DARVOCET, DEMEROL, PENICILLIN, PERCOCET, PERCODAN, SULFA DRUGS and VICODIN. HOME MEDICATIONS: 1. Amitriptyline 10 mg daily. 2. Prednisone 10 mg b.i.d. 3. Ativan 1 mg p.r.n. 4. Gabapentin 300 mg b.i.d. 5. Morphine 50 mg p.r.n. for pain. 6. Hizentra subcutaneous weekly injections. 7. Albuterol sulfate 2.5 mg nebulizer q.4 hours p.r.n. 8. Levofloxacin to 750 mg daily. 9. ketorolac 30 mg IM q.6 hours p.r.n. 10. Immunoglobulin IVIG 10 grams in 15 mL every 7 days subcutaneous. 11. Lorazepam 1 mg b.i.d. 12. Prednisone 10 mg b.i.d. 13. Sumatriptan succinate 6 mg subcutaneous q.1h p.r.n. for headaches. REVIEW OF SYSTEMS: Ten-point review of systems completed is otherwise negative unless stated in the above HPI. PHYSICAL EXAMINATION: VITAL SIGNS: Stable and within normal limits. HEENT: Normocephalic, atraumatic. Hearing intact. Moist mucous membranes. Trachea is midline. EYES: Pupils are equal and reactive to light. Extraocular muscles are intact. Sclerae is white, no nicteric. CARDIOVASCULAR: The patient has S1, S2 heart sounds. Regular rate and rhythm, no murmurs, clicks or gallops. RESPIRATORY: The patient has bilateral symmetric chest rise. Appears to have no shortness of breath . MUSCULOSKELETAL: The patient has 2/5 strength on the right upper and lower extremities as well. Ful l strength in the left upper and lower. NEUROLOGIC: Cranial nerves II-XII grossly intact. Speech is fluent. She answers my questions appro priately. She is alert and oriented to person, place and time. GCS of 15. There are no focal defic its. Sensation is subjectively has tingling and paresthesias in the face, right upper extremity and right leg. No dermatomal distribution. She also has 2/5 weakness in nerve dermatome in the upper or lower extremity. The patient occasionally has hard time finding words and she is talking. SKIN: Warm, dry, well perfused. PSYCHIATRIC: Normal mood and affect. On exam, questionable giveaway strength in the right upper and lower extremities. LABORATORY DATA: Includes hematology, coagulation and chemistry studies all within normal limits. U rine specific gravity at 1.064. IMPRESSION: Ms. Montiel is a 41-year-old female with increasing dizziness, headaches and visual raphael ges with frontal parafalcine meningioma. PLAN: From neurosurgical standpoint, the meningioma is highly likely not causing any symptoms. Neurosurger y unwilling to make urgent transfer to [facility] for resection of this meningioma, it is likely not causing her symptoms. There is no neurosurgical emergency at this time. If you have any further qu estions, please feel free to contact Neurosurgery.
[2017-06-07] MEDS: Morphine ER 15 MG TAB PO PRN (00:44)
[2017-06-07] MEDS: Heparin 5,000 UNITS/ML VIAL SC SCH ×2 (08:29→20:07)
[2017-06-07] MEDS: Amitriptyline HCl 10 MG TAB PO SCH ×2 (08:29→20:02)
[2017-06-07] MEDS: Lorazepam 1 MG TAB PO SCH ×2 (08:29→20:01)
[2017-06-07] MEDS: Aspirin 81 mg Enteric Coated Tablet PO SCH (08:29)
[2017-06-07] MEDS: Gabapentin 300 MG CAP PO SCH ×2 (08:29→20:02)
[2017-06-07] MEDS: Ketorolac Tromethamine 30 MG/ML VIAL IVP PRN ×2 (08:41→20:02)
[2017-06-07] MEDS ORDERED: Magnesium Citrate 300 ML BOT PO SCH (13:45)
--- NOTE | 2017-06-07 14:44 | PRG ---
DATE OF SERVICE: 06/07/2017 NEUROSURGERY CHART REVIEW NOTE I have been asked to create this note by a correctional counselor/case manager to document that I had communication with Dylan Russell PA-C yesterday about a patient named Willow Montiel. In short, after discussing the case and reviewing imaging, I concluded that there is no neurosurgical procedure I can offer that would alleviate her acute, nor her chronic, symptoms. IVANIA
--- NOTE | 2017-06-07 17:58 | PDOC.PN ---
- Subjective Encounter Start Date: 06/07/17 Encounter Start Time: 10:15 Subjective: pt up in bed still has some weakness - Objective Vital Signs & Weight: Vital Signs (12 hours) Temp Pulse Resp BP Pulse Ox 06/07/17 15:28 97.9 F 80 20 126/66 95 06/07/17 11:41 97.9 F 87 16 119/66 93 L 06/07/17 08:29 97.5 F L 72 18 06/07/17 07:51 97.5 F L 72 18 126/73 96 Weight Weight 258 lb 1 oz I&O: 06/06/17 06/07/17 06/08/17 06:59 06:59 06:59 Intake Total 720 Balance 720 Result Diagrams: 06/06/17 03:37 06/06/17 03:37 Phys Exam - Physical Examination HEENT: PERRLA, moist MMs Neck: no nodes Respiratory: no wheezing Cardiovascular: RRR Gastrointestinal: soft, non-tender Musculoskeletal: no edema, pulses present pt does have weakness to her right side Lymphatic: no nodes Dx/Plan - Plan * 1) Acute right sided weakness 2) meningioma 3) Hx of lupus/RA plan: pt's ct brain/cta head/neck and MRI no indication of stroke. pt does have this meningioma which was dx in . She did have some right face loss of sensation a few months back which resloved. she is suppose to go see neurosurgery in [place] for removal of the meningioma. Pt was on steroids for her lupus but has been off of them for some weeks now and gets weekly IV infusion with hyzentra. spoke with neurology who did not think her meningioma is causing her current symptoms. which i agree. will consult neurosurgery for evaluation. ? psychosomatic. pt was very upset about no intervention in regards to her right sided weakness. I did offer her inpatient rehab. However she did not want it. Explained to pt that all her scans are negative and that she has been evaluated by neurosurgery and neurology who do not think that her symptoms are secondary to her meniongma. Pt wanted to be transferred to [facility] under Dr Weeks. We did initiat the transfer but i was informed that if there is no dx of cancer [facility] will not take the pt. Pt was made aware of this. She then called her neurologist in [place] who recommended inpatient rehab. will initiate this process. Review of Systems - Review of Systems ENT: negative: Ear Pain, Ear Discharge, Nose Pain, Nose Discharge, Nose Congestion, Mouth Pain, Mouth Swelling, Throat Pain, Throat Swelling, Other Neurological: Weakness - Medications/Allergies Allergies/Adverse Reactions: Allergies Allergy/AdvReac Type Severity Reaction Status Date / Time hydrocodone [From Vicodin] Allergy Verified 03/12/17 08:38 meperidine [From Demerol] Allergy Verified 03/12/17 08:38 oxycodone [From Percocet] Allergy Verified 03/12/17 08:38 Penicillins Allergy Verified 03/12/17 08:38 propoxyphene Allergy Verified 03/12/17 08:38 Sulfa (Sulfonamide Allergy Verified 03/12/17 08:38 Antibiotics) Medications: Current Medications Acetaminophen (Tylenol) 650 mg PO Q4H PRN PRN Reason: Headache/Fever or Pain Last Admin: 06/06/17 06:51 Dose: 650 mg Amitriptyline HCl (Elavil) 10 mg PO BID [facility] Last Admin: 06/07/17 08:29 Dose: 10 mg Aspirin (Ecotrin) 81 mg PO DAILY [facility] Last Admin: 06/07/17 08:29 Dose: 81 mg Atorvastatin Calcium (Lipitor) 40 mg PO HS [facility] Last Admin: 06/06/17 20:57 Dose: 40 mg Gabapentin (Neurontin) 300 mg PO BID [facility] Last Admin: 06/07/17 08:29 Dose: 300 mg Heparin Sodium (Porcine) (Heparin) 5,000 units SC Q12HR [facility] Last Admin: 06/07/17 08:29 Dose: 5,000 units Hydralazine HCl (Apresoline) 10 mg SLOW IVP Q4H PRN PRN Reason: BP > 220/110 Ketorolac Tromethamine (Toradol) 15 mg IVP Q6H PRN PRN Reason: Pain Stop: 06/11/17 15:16 Last Admin: 06/07/17 08:41 Dose: 15 mg Labetalol HCl (Normodyne) 20 mg SLOW IVP Q1H PRN PRN Reason: BP > 220/110 Lactulose (Lactulose) 20 gm PO DAILYPRN PRN PRN Reason: Constipation Lorazepam (Ativan) 1 mg PO BID [facility] Last Admin: 06/07/17 08:29 Dose: 1 mg Magnesium Citrate (Citrate Of Magnesia 300 Ml Bot) 300 ml PO NOW LIZ Stop: 06/07/17 18:00 Last Admin: 06/07/17 15:54 Dose: 300 ml Magnesium Hydroxide (Milk Of Magnesium) 30 ml PO DAILYPRN PRN PRN Reason: Constipation Morphine Sulfate (Ms Contin) 15 mg PO Q6HR PRN PRN Reason: Headache Last Admin: 06/07/17 00:44 Dose: 15 mg Ondansetron HCl (Zofran) 4 mg IVP Q6H PRN PRN Reason: Nausea/Vomiting Sodium Chloride (Flush - Normal Saline) 10 ml IVF PRN PRN PRN Reason: Saline Flush Last Admin: 06/06/17 21:00 Dose: 10 ml
[2017-06-07] MEDS: Atorvastatin Calcium 40 MG TAB PO SCH (20:02)
[2017-06-08] MEDS: Ketorolac Tromethamine 30 MG/ML VIAL IVP PRN ×2 (04:26→10:48)
[2017-06-08] MEDS: Lorazepam 1 MG TAB PO SCH (09:05)
[2017-06-08] MEDS: Amitriptyline HCl 10 MG TAB PO SCH (09:05)
[2017-06-08] MEDS: Aspirin 81 mg Enteric Coated Tablet PO SCH (09:05)
[2017-06-08] MEDS: Gabapentin 300 MG CAP PO SCH (09:05)
[2017-06-08] MEDS: Heparin 5,000 UNITS/ML VIAL SC SCH (09:05)
[2017-06-08 16:36] VITALS: BP 152/81; TEMP 97.9
--- NOTE | 2017-06-09 04:39 | DIS ---
DATE OF ADMISSION: 06/06/2017 DATE OF DISCHARGE: 06/08/2017 HOSPITAL COURSE: The patient is a pleasant 41-year-old female who initially presented to the [facility] with right-sided weakness. The patient does have a history of lupus and rheumatoid arthritis and a meningioma. The patient had a CAT scan of the brain done which did not show any signs of acute stro ke; however, it did indicate that the patient does have a 12 x10 mm presumable meningioma in the fron rosy falcine partially calcified mass. She then underwent a CT with contrast of the [place] of [place] which did not indicate any acute abnormalities. No acute vascular findings were noted at this time. Neurology was consulted and the patient also underwent a stroke workup including an echocardiogram w hich indicated an EF of 55-60% with no significant valvular issues. The patient then was seen by Abdulkadir shafer, given her unexplainable right-sided weakness. At this time, Neurosurgery did not think th at meningioma was causing her right-sided weakness and the patient also had some cerebral dysfunction which included [id number] and [id number] test. I did discuss extensively with the neurologist about the patient's CAT scan reports, also brain MRI was done, which is not new, did not indicate an y acute abnormalities except for the meningioma or no stroke, which they thought that most likely thi s was secondary to psychomotor. The patient was actually supposed to see a neurosurgeon at [facility] on on 06/14/2017, has an appointment. The patient wanted to be transferred to [facility]. Did in itiate the transfer; however [facility] did not take the patient since the patient did not have an acute active diagnosis of cancer. The patient and were notified about this and at this time rehab was thought for a possibility. The patient to be qualified for rehab, insurance approval woul d be needed and this will take about 3-4 days. The patient at this time was discharged home with [facility] therapy and also in the works for acceptable for possible inpatient rehab. The patient was ask ed to follow up with the neurosurgeon on Tuesday and also with her PCP. DISCHARGE MEDICATIONS: As the following: Amitriptyline 10 mg p.o. b.i.d., gabapentin 300 mg p.o. b. i.d. Morphine sulfate 50 mg q.6h. p.r.n., Ativan 1 mg p.o. b.i.d. I did give her Toradol 10 mg q.6h . for 5 days p.r.n. Also, the patient takes immunoglobulin IgA, Hizentra daily 10 grams subcu every 7 days and she had Tussionex 100 mg p.o. q.4 hours p.r.n. CONSULTANTS: Neurology and Neurosurgery. DISCHARGE DIAGNOSES: 1. Right-sided weakness, unknown etiology. 2. Meningioma. 3. History of lupus and rheumatoid arthritis.
--- NOTE | 2017-06-11 13:13 | EKG ---
Test Reason : LAMBERT Blood Pressure : / mmHG Vent. Rate : 074 BPM Atrial Rate : 074 BPM P-R Int : 180 ms QRS Dur : 094 ms QT Int : 410 ms P-R-T Axes : 053 003 028 degrees QTc Int : 455 ms Normal sinus rhythm Normal ECG Confirmed by NADEEM CHAWLA ([id number]), photograph editor LATANYA ROMERO ([id number]) on 06/11/2017 1:12:07 PM Referred By: Confirmed By:NADEEM CHAWLA
== END 2017-06-08 17:25 | disposition home or self-care (01) ==
LOC: ERS 23:34 → INTOOBSV 06-06 04:00 → 2SE 06-06 04:00
PROVIDERS: ADMIT Internal Medicine; ATTEND Internal Medicine
DX: R29.898 Other symptoms and signs involving the musculoskeletal system (principal); D32.0 Benign neoplasm of cerebral meninges; M32.9 Systemic lupus erythematosus, unspecified; M06.9 Rheumatoid arthritis, unspecified; D84.8 Other specified immunodeficiencies; M79.7 Fibromyalgia; M10.9 Gout, unspecified; F17.210 Nicotine dependence, cigarettes, uncomplicated; Z79.52 Long term (current) use of systemic steroids; Z79.2 Long term (current) use of antibiotics; Z79.899 Other long term (current) drug therapy; Z88.0 Allergy status to penicillin; Z88.2 Allergy status to sulfonamides; Z88.5 Allergy status to narcotic agent; Z90.710 Acquired absence of both cervix and uterus; Z90.49 Acquired absence of other specified parts of digestive tract
CPT/HCPCS: 36415; 36416; 70450; 70496; 70498; 70551; 80053; 80061; 81003; 82553; 83735; 84484; 84703; 85025; 85610; 85730; 93005; 93306; 96365; 96366; 96375; 96376; 99406; G0378; G8978-GP-CJ; G8979-GP-CI; G8987-GO-CJ; G8988-GO-CI; G8996-GN-CI; G8997-GN-CI; J1642; J1644; J1885; J2405; J2765; J2930

== ENCOUNTER 2017-08-09 23:19 | Emergency (ER) | payer BC ==
[2017-08-10 00:35] LABS: #Basophils 0.1 thou/uL (0.0-0.2); #Eosinphils 0.1 thou/uL (0.0-0.7); #Lymphocytes 1.7 thou/uL (1.20-3.40); #Monocytes 0.3 thou/uL (0.11-0.59); #Neutrophils 3.4 thou/uL (1.40-6.50); %Eosinophils 2.6 % (0.0-10.0); %Lymphocytes 29.7 % (21.0-51.0); %Monocytes 5.4 % (0.0-10.0); %Neutrophils 61.4 % (42.0-75.0); Mean Corpuscular HGB CONC 33.8 g/dL (32.0-36.0); Mean Corpuscular Hemoglobin 30.4 pg (27.0-31.0); Mean Platelet Volume 7.6 fL (7.4-10.4); Platelet Count 241 thou/uL (130-400); RBC Distribution Width 13.3 % (11.5-14.5); White Blood Cell (WBC) Count 5.6 thou/uL (4.8-10.8)
[2017-08-10 00:44] LABS: INR-International Normal Ratio 0.9
[2017-08-10 00:49] LABS: ALT (SGPT) 119 U/L (8-55); AST (SGOT) 48 U/L (5-34); Albumin 3.5 g/dL (3.5-5.0); Alkaline Phosphatase 204 U/L (40-150); Anion Gap 13 mmol/L (10-20); BUN (Urea Nitrogen) 15 mg/dL (7.0-18.7); Bilirubin, Total 0.3 mg/dL (0.2-1.2); CK (CPK) 71 U/L (29-168); Calc. Creatinine Clearance 0 mL/min (70-130); Carbon Dioxide 28 mmol/L (22-29); Chloride 97 mmol/L (98-107); Estimated GFR-MDRD 87; Globulin 3.6 g/dL (2.4-3.5); Glucose 321 mg/dL (70-105); Potassium 3.8 mmol/L (3.5-5.1); Protein, Total 7.1 g/dL (6.0-8.3); Sodium 134 mmol/L (136-145)
[2017-08-10 00:52] LABS: CKMB 0.5 ng/mL (0-6.6); Troponin I Less than 0.010 ng/mL (< 0.028)
[2017-08-10] MEDS ORDERED: Fentanyl 100 MCG/2 ML VIAL ONE (02:15)
[2017-08-10] MEDS ORDERED: Furosemide 40 MG/4 ML VIAL ONE (02:39)
[2017-08-10 03:35] LABS: Bilirubin Negative (Negative); Blood, Urine Negative (Negative); Clarity CLEAR (Clear); Glucose, Urine (Dipstick) >=1000 mg/dL (Negative); Leukocyte Negative (Negative); Nitrite Negative (Negative); Protein, Urine (Dipstick) Negative (Neg-Trace); Specific Gravity, Urine 1.031 (1.002-1.036); Urobilinogen 0.2 mg/dL (0.2-1.0); pH, Urine 5.5 (5.0-9.0)
--- NOTE | 2017-08-10 08:14 | RAD ---
PORTABLE CHEST 1 VIEW: DATE: 08/10/17. TIME: 11:58 p.m. HISTORY: Pedal edema. FINDINGS: Comparison is made with the exam of 03/11/17. There is a right-sided internal jugular Port-A-Cath with tip in the projection of the SVC. The heart size is prominent. Mild chronic changes are again seen. No lobar consolidation, pneumothorax, lay k pulmonary edema, or pleural effusions are identified. IMPRESSION: No acute process. POS: [facility]
--- NOTE | 2017-08-10 10:14 | ULT ---
PRELIMINARY REPORT/[facility]/EMERGENTY AFTER-HOURS PROCEDURE US Duplex Bilateral Lower Extremity Veins CLINICAL HISTORY: 41 years old, female; Pain and signs and symptoms; Edema, localized; Lower extremity, bilateral; Leg, upper and leg, lower; Prior surgery; Surgery date: <1 month; Surgery type: Craniotomy; Patient HX: B le pain/edema; Additional info: HX: Dvt TECHNIQUE: Real-time duplex ultrasound scan of the bilateral lower extremity veins integrating B-mode two dimens ional vascular structure, Doppler spectral analysis, color flow Doppler imaging and compression. COMPARISON: No relevant prior studies available. FINDINGS: Right deep veins: Unremarkable. No DVT in the right common femoral, femoral, proximal deep femoral or popliteal veins. The veins demonstrate normal color flow, are normally compressible, with normal pha sic flow and/or augmentation response. Right superficial veins: Unremarkable. No thrombus in the visualized right great saphenous vein. Left deep veins: Unremarkable. No DVT in the left common femoral, femoral, proximal deep femoral or p opliteal veins. The veins demonstrate normal color flow, are normally compressible, with normal phasi c flow and/or augmentation response. Left superficial veins: Unremarkable. No thrombus in the visualized left great saphenous vein. Soft tissues: No acute findings. No popliteal cyst. Subcutaneous edema. IMPRESSION: Normal bilateral lower extremity duplex venous ultrasound. Thank you for allowing us to participate in the care of your patient. Dictated and Authenticated by: Jak Andrade MD 08/10/2017 1:54 AM Central Time ([place] & [place]) FINAL REPORT BILATERAL LOWER EXTREMITY VENOUS ULTRASOUND: I agree with the preliminary report given by Dr. Jak Andrade of [facility]. POS: [facility]
--- NOTE | 2017-08-10 10:22 | CT ---
PRELIMINARY REPORT/[facility]/EMERGENTY AFTER-HOURS PROCEDURE US Duplex Bilateral Lower Extremity Veins CLINICAL HISTORY: 41 years old, female; Pain and signs and symptoms; Edema, localized; Lower extremity, bilateral; Leg, upper and leg, lower; Prior surgery; Surgery date: <1 month; Surgery type: Craniotomy; Patient HX: Sera le pain/edema; Additional info: HX: Dvt TECHNIQUE: Real-time duplex ultrasound scan of the bilateral lower extremity veins integrating B-mode two dimens ional vascular structure, Doppler spectral analysis, color flow Doppler imaging and compression. COMPARISON: No relevant prior studies available. FINDINGS: Right deep veins: Unremarkable. No DVT in the right common femoral, femoral, proximal deep femoral or popliteal veins. The veins demonstrate normal color flow, are normally compressible, with normal pha sic flow and/or augmentation response. Right superficial veins: Unremarkable. No thrombus in the visualized right great saphenous vein. Left deep veins: Unremarkable. No DVT in the left common femoral, femoral, proximal deep femoral or p opliteal veins. The veins demonstrate normal color flow, are normally compressible, with normal phasi c flow and/or augmentation response. Left superficial veins: Unremarkable. No thrombus in the visualized left great saphenous vein. Soft tissues: No acute findings. No popliteal cyst. Subcutaneous edema. IMPRESSION: Normal bilateral lower extremity duplex venous ultrasound. Thank you for allowing us to participate in the care of your patient. Dictated and Authenticated by: Jak Andrade MD 08/10/2017 1:54 AM Central Time ([place] & [place]) FINAL REPORT CT BRAIN WITHOUT CONTRAST: I agree with the preliminary report given by Raymond of [facility]. Comparison is made with the exam of 05/26 05/15. The previously noted meningioma has been removed in the interim. POS: [facility]
--- NOTE | 2017-08-13 16:18 | EKG ---
Test Reason : Blood Pressure : / mmHG Vent. Rate : 105 BPM Atrial Rate : 105 BPM P-R Int : 156 ms QRS Dur : 096 ms QT Int : 364 ms P-R-T Axes : 040 -04 025 degrees QTc Int : 481 ms Sinus tachycardia Possible Left atrial enlargement Borderline ECG Confirmed by VANCE VIRAMONTES, MARGAUX ([id number]), supervising film or videotape editor SIERRA TYSON ([id number]) on 08/13/2017 4:17:49 PM Referred By: Confirmed By:MARGAUX WOODARD MD
== END 2017-08-10 04:06 | disposition home or self-care (01) ==
LOC: ERS 23:19
DX: L03.115 Cellulitis of right lower limb (principal); R51 Headache; R60.9 Edema, unspecified; R73.9 Hyperglycemia, unspecified; F17.210 Nicotine dependence, cigarettes, uncomplicated; Z79.899 Other long term (current) drug therapy
CPT/HCPCS: 70450; 71045; 80053; 81003; 82553; 83880; 84484; 85025; 85379; 85610; 85730; 93005; 93970; 96374; 96375; J1940; J3010